=== PATIENT | female | born 1970 | race Caucasian/White ===

== ENCOUNTER 2018-08-06 20:37 | Emergency (ER) | payer SELFPAY ==
[~2018-08-06] VITALS: Ht 160 cm; Wt 54.5 kg
[2018-08-06 21:11] LABS: HEMATOCRIT 38.8 % (37.0-47.0); HEMOGLOBIN 12.3 g/dl (12.0-16.0); IMMATURE GRANULOCYTES 0.2 % (0.0-5.0); MEAN CELL VOLUME 84.5 fL CALC (80.0-100.0); MEAN CORPUSCULAR HGB 26.8 pG CALC (26.0-32.0); MEAN CORPUSCULAR HGB CONC 31.7 g/L CALC (32.0-36.0); NEUT# 2.48 thou/uL (2.00-7.15); RED BLOOD COUNT 4.59 mill/uL (4.20-5.60); RED CELL DISTRI WIDTH 16.1 % (11.5-15.5)
[2018-08-06 21:29] LABS: ALBUMIN 4.7 g/dL (3.2-5.0); ALKALINE PHOSPHATASE 231 u/l (38-126); ANION GAP 14 (6-22 (CALC)); BILIRUBIN, TOTAL 0.6 mg/dL (0.0-1.4); BUN 24 mg/dL (7-17); BUN/CREATININE RATIO 38 (12-20 (CALC)); CARBON DIOXIDE 23 mmol/l (22-30); CHLORIDE 110 mmol/l (95-108); CREATININE 0.6 mg/dL (0.5-1.0); GFR > 60 ML/MIN (>=60 (CALC)); GFR FOR AFR.AMER. > 60 ML/MIN (>=60 (CALC)); POTASSIUM 3.4 mmol/l (3.5-5.1); SGOT/AST 15 u/l (14-36); SODIUM 144 mmol/l (137-146); TOTAL PROTEIN 8.2 g/dL (6.3-8.2)
[2018-08-06 21:41] LABS: MYOGLOBIN 15 ng/mL (0 - 62)
[2018-08-07 00:40] VITALS: BP 115/67
== END 2018-08-07 00:40 | disposition short-term general hospital (02) | DRG 71 ==
LOC: ED 20:37
PROVIDERS: Family Medicine
DX: G93.9 Disorder of brain, unspecified (principal); C56.9 Malignant neoplasm of unspecified ovary; R51 Headache; R42 Dizziness and giddiness; F17.210 Nicotine dependence, cigarettes, uncomplicated; Z79.899 Other long term (current) drug therapy; Z95.0 Presence of cardiac pacemaker; R10.812 Left upper quadrant abdominal tenderness
CPT/HCPCS: Q9967

== ENCOUNTER 2018-08-31 13:56 | Observation (INO) | payer OTHER ==
[~2018-08-31] VITALS: Ht 160 cm; Wt 50.0 kg
[2018-08-31 14:26] LABS: IMMATURE GRANULOCYTES 0.3 % (0.0-5.0); MEAN CELL VOLUME 84.1 fL CALC (80.0-100.0); MEAN CORPUSCULAR HGB CONC 32.1 g/L CALC (32.0-36.0); NEUT# 2.39 thou/uL (2.00-7.15); RED BLOOD COUNT 5.41 mill/uL (4.20-5.60); RED CELL DISTRI WIDTH 18.1 % (11.5-15.5)
[2018-08-31 14:37] LABS: ALBUMIN 4.1 g/dL (3.2-5.0); ALKALINE PHOSPHATASE 207 u/l (38-126); ANION GAP 13 (6-22 (CALC)); BUN 32 mg/dL (7-17); BUN/CREATININE RATIO 57 (12-20 (CALC)); CARBON DIOXIDE 24 mmol/l (22-30); CHLORIDE 107 mmol/l (95-108); CREATININE 0.5 mg/dL (0.5-1.0); GFR > 60 ML/MIN (>=60 (CALC)); GFR FOR AFR.AMER. > 60 ML/MIN (>=60 (CALC)); POTASSIUM 3.7 mmol/l (3.5-5.1); SODIUM 140 mmol/l (137-146)
[2018-08-31 14:38] LABS: BILIRUBIN, TOTAL 1.3 mg/dL (0.0-1.4); HEMATOCRIT 45.5 % (37.0-47.0); HEMOGLOBIN 14.6 g/dl (12.0-16.0); SGOT/AST 30 u/l (14-36)
[2018-08-31 17:15] VITALS: BP 88/55
[2018-08-31 19:38] VITALS: BP 90/61
[2018-09-01 03:48] VITALS: BP 98/73
[2018-09-01 09:27] VITALS: BP 103/72
== END 2018-09-01 15:10 | disposition hospice, inpatient (51) ==
LOC: ED 13:56 → ED-I 14:09 → ED 15:34 → MS2 15:35 → ED 16:24 → ED-I 16:24 → MS2 09-01 15:10
PROVIDERS: Family Medicine; ADMIT Internal Medicine Nephrology; ATTEND Internal Medicine Nephrology
DX: R62.7 Adult failure to thrive (principal); E86.0 Dehydration; C56.9 Malignant neoplasm of unspecified ovary; C79.31 Secondary malignant neoplasm of brain; C79.9 Secondary malignant neoplasm of unspecified site; F17.200 Nicotine dependence, unspecified, uncomplicated; Z51.5 Encounter for palliative care; Z66 Do not resuscitate; Z92.3 Personal history of irradiation; Z95.2 Presence of prosthetic heart valve; Z95.0 Presence of cardiac pacemaker; Z68.1 Body mass index [BMI] 19.9 or less, adult; Z92.21 Personal history of antineoplastic chemotherapy
CPT/HCPCS: G0378